=== PATIENT | female | born 1985 | race Caucasian/White ===

== ENCOUNTER 2017-05-04 11:42 | Day surgery (SDC) | payer BC ==
[2017-04-26 11:13] VITALS: BMI 24.2
[~2017-05-04 11:42] MED LIST: HEPARIN SODIUM,PORCINE 5,000 UNIT/ML 1 ML VIAL SQ ONE; HYDROmorphone 1 MG/ML 1 ML SYRINGE IVP PRN; LACTATED RINGERS 1,000 ML IV SCH; LIDOCAINE 1% 20 ML VIAL (10MG/ML) FOR IV START INTRADERMA PRN; ONDANSETRON 4 MG/2 ML VIAL IVP PRN; Pre Op ABX Message 1 EACH MISC MISCELLANE ONE
[2017-05-04] MEDS ORDERED: MIDAZOLAM 2 MG/2 ML VIAL ONE (13:01)
[2017-05-04] MEDS ORDERED: PROPOFOL 10 MG/ML 20 ML VIAL IV ONE (13:01)
[2017-05-04] MEDS ORDERED: LIDOCAINE 1% INJ 10MG/ML (20 ML MDV) ONE (13:01)
[2017-05-04] MEDS ORDERED: fentaNYL (PF) 50 MCG/ML 2 ML AMP ONE (13:01)
[2017-05-04] MEDS ORDERED: SODIUM CHLORIDE 0.9% 50 ML with ceFAZolin 2,000 MG IV ONE ×2 (13:18)
[2017-05-04] MEDS ORDERED: BUPIVACAIN-EPI 0.5%-1:200,000 30 ML VIAL SQ ONE (13:20)
[2017-05-04 14:53] VITALS: TEMP 98.7
[2017-05-04 15:03] VITALS: RESP 16
[2017-05-04 16:14] VITALS: BP 124/75; PULSE 64
--- NOTE | 2017-05-09 12:19 | P.OP ---
Date of Procedure: 05/04/17 Preoperative Diagnosis: Left labial cyst Postoperative Diagnosis: Same Procedure(s) Performed: Left labial cyst excision Implants: Anesthesia: MAC, local Surgeon: Mariama Perez Pathology: other Condition: stable Disposition: PACU Indications for Procedure: 32 years old female presents with painful soft tissue nodule in the left labia and medial thigh region. Informed consent obtained and patient elected to undergo surgical excision and wound Operative Findings: Description of Procedure: She was brought to the operating room and placed in lithotomy position using stirrups. Betadine was used to prep the skin followed by application of sterile drapes. Local anesthetic was injected to create a local field block. A 2.2 by 1 cm skin incision was made to include the skin and underlying nodule. Bovie electrocautery was used to resect the indurated area. Post excisional measurement of defect was 2.2 x 1 x 0.6 cm. The area was very vascular and was bleeding profusely. This was controlled with suture ligation and application of Surgicel. Resulting cavity was closed in 3 layers using interrupted sutures of 3-0 Vicryl and the interrupted sutures of 2-0 nylon. She tolerated the procedure well and was taken to post anesthetic care unit in stable condition. Sponge, instrument and needle count were correctx2
== END 2017-05-04 17:00 | disposition home or self-care (01) ==
LOC: OR 11:42
PROVIDERS: ATTEND Surgery
DX: N76.2 Acute vulvitis (principal); M79.89 Other specified soft tissue disorders; G47.419 Narcolepsy without cataplexy; F17.200 Nicotine dependence, unspecified, uncomplicated; Z79.2 Long term (current) use of antibiotics; Z79.3 Long term (current) use of hormonal contraceptives; Z79.52 Long term (current) use of systemic steroids; Z79.899 Other long term (current) drug therapy
CPT/HCPCS: 81025; 88304; 11423; J2250; J1644; J2405; J2001; J3010; J0690; J2704

== ENCOUNTER → 2018-10-02 | Outpatient (CLI) | payer BC ==
--- NOTE | 2018-10-02 12:45 | XR ---
EXAMINATION TYPE: XR hand complete RT DATE OF EXAM: 10/02/2018 CLINICAL HISTORY: Right hand pain and swelling. TECHNIQUE: Frontal, lateral and oblique images of the right hand are obtained. COMPARISON: None. FINDINGS: There is no acute fracture/dislocation evident in the right hand. The joint spaces in the right hand appear within normal limits. The overlying soft tissue appears unremarkable. IMPRESSION: As above.
== END | disposition home or self-care (01) ==
LOC: RADXRMAIN 12:05
PROVIDERS: ATTEND Family Medicine
DX: M79.641 Pain in right hand (principal)

== ENCOUNTER → 2020-04-03 | Outpatient (CLI) | payer BC | END | disposition home or self-care (01) | LOC: LABWHC1 12:43 | PROVIDERS: ATTEND Family Medicine | DX: Z53.9 Procedure and treatment not carried out, unspecified reason (principal) ==

== ENCOUNTER → 2022-04-26 | Outpatient (CLI) | payer OTHER ==
--- NOTE | 2022-04-27 08:32 | MM ---
Reason for Exam: Screening (asymptomatic). Baseline mammogram. Patient History: Menarche at age 13. Patient used Hormonal Contraceptives for 1 year. Maternal grandmother had breast cancer. Last menstrual period: 04/19/2022 Risk Values: Lilia 5 year model risk: 0.3%. NCI Lifetime model risk: 7.4%. Prior Study Comparison: Patient's first Mammogram. No prior studies available for comparison. Tissue Density: The breast tissue is heterogeneously dense. This may lower the sensitivity of mammography. Findings: Analyzed By CAD. Benign-appearing calcifications in the left breast. There is no suspicious group of microcalcifications or new suspicious mass in either breast. Overall Assessment: Benign, BI-RAD 2 Management: Screening Mammogram of both breasts in 1 year. A clinical breast exam by your physician is recommended on an annual basis and results should be correlated with mammographic findings. Electronically signed and approved by: Matt Cordero DO
== END | disposition home or self-care (01) ==
LOC: RADMAMWWP 13:35
PROVIDERS: ATTEND Family Medicine
DX: Z12.39 Encounter for other screening for malignant neoplasm of breast (principal)
CPT/HCPCS: 77063; 77067